=== PATIENT | male | born 1970 | race Hispanic/Latino ===

== ENCOUNTER → 2023-08-09 | Day surgery (SDC) | payer BC ==
[2023-08-08 13:09] LABS: BASOPHILS # (AUTO) 0.1 (0.0-0.1); BASOPHILS % 0.7 % (0.0-1.0); EOSINOPHILS # (AUTO) 0.1 (0.0-0.4); EOSINOPHILS % 1.8 % (0.0-6.0); HEMATOCRIT 42.5 % (38.2-49.6); HEMOGLOBIN 15.1 g/dL (14.0-18.0); LYMPHOCYTES # (AUTO) 1.5 (1.0-3.2); LYMPHOCYTES % 19.8 % (18.0-39.1); MEAN CORPUSCULAR HEMOGLOBIN 30.3 pg (28-32); MEAN CORPUSCULAR HGB CONC 35.5 g/dL (31-35); MEAN CORPUSCULAR VOLUME 85.2 fL (81-99); MONOCYTES # (AUTO) 0.6 (0.2-0.8); MONOCYTES % 8.5 % (4.4-11.3); NEUTROPHILS # (AUTO) 5.1 (2.1-6.9); NEUTROPHILS % 68.8 % (38.7-80.0); PLATELET COUNT 253 x10e3/uL (140-360); RED BLOOD COUNT 4.99 x10e6/uL (4.3-5.7); RED CELL DISTRIBUTION WIDTH 13.2 % (11.7-14.4); WHITE BLOOD COUNT 7.39 x10e3/uL (4.8-10.8)
[2023-08-08 13:15] LABS: INR 1.11; PROTHROMBIN TIME 14.5 seconds (11.9-14.5)
[2023-08-08 13:16] LABS: PARTIAL THROMBOPLASTIN TIME 35.4 seconds (23.8-35.5)
[2023-08-08 13:23] LABS: ALBUMIN 4.2 g/dL (3.5-5.0); ANION GAP 14.3 mmol/L (8-16); BILIRUBIN,TOTAL 1.5 mg/dL (0.2-1.2); CALCIUM 9.8 mg/dL (8.4-10.2); CHOL/HDL RATIO 4.8 (3.9-4.7); CREATININE, SERUM 0.81 mg/dL (0.72-1.25); POTASSIUM 4.3 mmol/L (3.5-5.1); TOTAL PROTEIN 8.3 g/dL (6.5-8.1)
[~2023-08-09] VITALS: Ht 175.3 cm; Wt 95.3 kg
[2023-08-09] VITALS (12 sets, daily range): BP systolic 107–145; BP diastolic 64–93; PULSE 46–66; RESP 12–16; TEMP 97.3–98; O2SAT 99–100
[~2023-08-09] MED LIST: CARVEDILOL 3.125 MG TAB PO ONE; CRESTOR 10MG PO SCH; CRESTOR10 MG PO; FENTANYL CITRATE/PF 100MCG/2 ML INJ ONE; HEPARIN SOD (PORCINE) 1000 UNIT/ML 30ML ONE; HEPARIN SOD/SOD CHLORIDE 2,000 ML ONE; IOPAMIDOL 370 MG/ML 100 ML INFUS..BTL INJ ONE; LIDOCAINE HCL 2% LOCAL 20 ML VIAL ONE; LOSARTAN-HCTZ1 EACH PO; MIDAZOLAM HCL 2 MG/2 ML VIAL ONE; NITROGLYCERIN/D5W 200 MCG/ML 250 ML ONE; NITROSTAT0.4 MG SL; PLAQUENIL200 MG PO; SODIUM CHLORIDE 0.9% 1000ML 1,000 ML ONE; SOLIQUA 100 UNIT3 ML; VERAPAMIL HCL 2.5 MG/ML 2 ML VIAL ONE
[2023-08-09] MEDS: ASPIRIN 81 MG CHEW TAB ONE (11:43)
[2023-08-09] MEDS: ASPIRIN 325 MG TAB ONE (11:45)
== END | disposition home or self-care (01) ==
LOC: CATH LAB 07:22
PROVIDERS: ATTEND Internal Medicine Cardiovascular Disease
DX: I25.119 Atherosclerotic heart disease of native coronary artery with unspecified angina pectoris (principal); Z01.812 Encounter for preprocedural laboratory examination; Z79.4 Long term (current) use of insulin; Z79.899 Other long term (current) drug therapy; Z68.31 Body mass index [BMI] 31.0-31.9, adult
CPT/HCPCS: 36415 ×2; 76937; 80053; 80061; 82948; 85025; 85610; 85730; 93458; C1769; C1887 ×2; J1644; J2001; J2250; J3010; J7030; Q9967; 99152; 99153